=== PATIENT | male | born 1990 | race African-American/Black ===

== ENCOUNTER 2020-01-16 08:54 | Emergency (ER) | payer MEDICAID ==
[~2020-01-16] VITALS: Ht 188 cm; Wt 91.0 kg
[2020-01-16 08:58] VITALS: BP 142/84
== END 2020-01-16 10:20 | disposition left against medical advice (07) ==
LOC: ER 08:54
DX: Z59.0 Homelessness (principal)
CPT/HCPCS: 99283

== ENCOUNTER 2025-02-16 16:21 | Emergency (ER) | payer MEDICAID, OTHER ==
[~2025-02-16] VITALS: Ht 182.9 cm; Wt 100.0 kg
[2025-02-16 16:32] VITALS: O2SAT 99
[2025-02-16 17:16] LABS: BASOPHILS % 0.6 % (0.0-2.0); EOSINOPHILS % 3.1 % (0.0-5.0); HEMATOCRIT. 37.0 % (42.0-52.0); HEMOGLOBIN. 11.7 g/dL (14.0-18.0); LYMPHOCYTES % 15.6 % (20.0-50.0); MEAN PLATELET VOLUME 8.5 fl (7.4-10.4); MONOCYTES % 10.6 % (2.0-8.0); NEUTROPHILS % 70.1 % (40.0-76.0); PLATELET 248 x1000/uL (130-400); RED BLOOD CELL COUNT 4.42 mill/uL (4.7-6.1); RED CELL DISTRIBUTION WIDTH 15.4 % (11.6-14.6)
[2025-02-16 17:32] LABS: CREATININE 1.3 mg/dL (0.6-1.3)
[2025-02-16 17:33] LABS: PROTEIN TOTAL 7.3 g/dL (6.0-8.3); UREA NITROGEN BLOOD 12 mg/dL (9-23)
[2025-02-16 17:34] LABS: ASPARTATE AMINOTRANSFERASE 45 IU/L (<34); BILIRUBIN DIRECT 0.2 mg/dL (<=3.0); TROPONIN I HIGH SENSITIVITY < 4 ng/L (3.0-53)
[2025-02-16] MEDS: SODIUM CHLORIDE 0.9% 1,000 ML IV ONE ×3 (17:34→18:41)
[2025-02-16 17:35] LABS: BILIRUBIN TOTAL 0.6 mg/dL (0.1-1.0)
[2025-02-16 17:39] LABS: CLARITY URINE CLEAR (CLEAR); COLOR URINE YELLOW (YELLOW); GLUCOSE URINE 3+ (NEGATIVE); KETONES URINE 2+ (NEGATIVE); LEUKOCYTE ESTERASE URINE NEGATIVE (NEGATIVE); NITRITE URINE NEGATIVE (NEGATIVE); OCCULT BLOOD URINE NEGATIVE (NEGATIVE); PH URINE 6.5 (4.5-8.0); PROTEIN URINE NEGATIVE (NEGATIVE); SPECIFIC GRAVITY URINE 1.043 (1.005-1.030); UROBILINOGEN URINE 1.0 E.U./dL (0.2-1.0)
[2025-02-16 18:13] LABS: BACTERIA URINE NONE SEEN; RBC URINE NONE SEEN /hpf (0-2); SQUAMOUS EPITHELIAL CELL URINE NONE SEEN /lpf (RARE/1+); WBC URINE NONE SEEN /hpf (0-2); YEAST URINE NONE SEEN
[2025-02-16] MEDS: INSULIN LISPRO 100 UNITS/ML SUBCUT ONE (18:40)
[2025-02-16 20:38] LABS: TROPONIN I HIGH SENSITIVITY 4 ng/L (3.0-53)
[2025-02-16 23:52] VITALS: BP 115/79; PULSE 92; RESP 14; TEMP 36.7; O2SAT 97
== END 2025-02-16 23:52 | disposition home or self-care (01) ==
LOC: ER 16:21 → CMPBEDREQ 02-17 12:37
DX: R55 Syncope and collapse (principal); E86.0 Dehydration; E11.65 Type 2 diabetes mellitus with hyperglycemia; F20.9 Schizophrenia, unspecified
CPT/HCPCS: 99284; 96360; 80076; 80048; 81003; 82010; 82962; 83690; 85025; 84484; 36415; 93005; 96372; J1815; J7030